=== PATIENT | female | born 1955 | race Caucasian/White ===

== ENCOUNTER 2017-03-15 12:09 | Day surgery (SDC) | payer BC ==
[2017-03-15] MEDS ORDERED: ONDANSETRON HCL IV 4 MG/2 ML VIAL IVP ONE (12:10)
[2017-03-15] MEDS ORDERED: PROPOFOL 10 MG/ML VIAL IV ONE (12:10)
[2017-03-15] MEDS ORDERED: LIDOCAINE 2% MDV (20MG/ML) 20ML VIAL IV ONE (12:10)
--- NOTE | 2017-03-17 11:30 | Operative Note ---
DATE OF SURGERY: 03/15/2017 OPERATION: COLONOSCOPY to the cecum with electrocautery snare polypectomy x3, cold snare polypectomy x1, and cold biopsy forceps polypectomy x2. INDICATION: Hemoccult-positive stools. The patient also with a history of irritable bowel syndrome. She occasionally will see blood when wiping. ANESTHESIA: Intravenous sedation was administered by the department of anesthesiology and included Diprivan titrated to effect. PROCEDURE: Following informed consent from this alert individual including a discussion of the risks and benefits of the procedure and an opportunity for the patient to ask questions, the patient was in the left lateral decubitus position. A digital rectal examination was performed. No masses were noted. No stool was obtained. Following this, the Olympus [id number] video colonoscope was inserted into the rectum without resistance. The rectal mucosa had a normal appearance with normal folds and distensibility. There was a polyp noted in the mid rectum measuring approximately 8 mm in size which was removed with electrocautery snare polypectomy and suctioned through the colonoscope into a collection trap. The colonoscope was then further advanced up through the bowel to the level of the cecum. The cecum was defined by noting the appendiceal orifice and ileocecal valve. The colon preparation was good. From the base of the cecum, the colonoscope was slowly withdrawn. There was a polyp noted in the proximal transverse colon along the fold. It measured approximately 1 cm in length and was removed with electrocautery snare polypectomy with a white eschar noted. There was no bleeding. It was suctioned through the endoscope into a collection trap. It was removed in piecemeal fashion. There was a third polyp noted in the descending colon measuring 6 mm in size which was also removed with electrocautery snare polypectomy. Again a white eschar was noted without bleeding. There were 3 polyps in the sigmoid colon, the largest measured 5 mm in size and was removed with cold snare polypectomy. Two diminutive 3 mm polyps were each removed with biopsy forceps. Retroflexion in the rectum demonstrated internal and external hemorrhoids with some inflamed-appearing mucosa. The endoscope was straightened and removed. The patient tolerated the procedure well and was returned to the recovery area in stable condition. IMPRESSION: 1. A 1 cm transverse colon polyp removed with electrocautery snare polypectomy in piecemeal fashion. 2. A 6 mm descending colon polyp removed with electrocautery snare. 3. Three sigmoid polyps measuring 3-5 mm in size removed with biopsy forceps and cold snare polypectomy. 4. An 8 mm rectal polyp removed with electrocautery snare polypectomy. 5. Inflamed internal and external hemorrhoids (small). RECOMMENDATIONS: Further recommendations will be forthcoming pending results of pathology obtained today. The patient can also use a hemorrhoidal cream topically. Followup will be with Dr. Dominguez as well. As always, thank you for allowing me to participate in the care of your patient. CC: Dr. Guillermo CLOUD
== END 2017-03-15 14:15 | disposition home or self-care (01) ==
LOC: HOP 12:09
PROVIDERS: ATTEND Internal Medicine Gastroenterology
DX: R19.5 Other fecal abnormalities (principal); Z87.19 Personal history of other diseases of the digestive system; D12.4 Benign neoplasm of descending colon; D12.3 Benign neoplasm of transverse colon; D12.5 Benign neoplasm of sigmoid colon; K62.1 Rectal polyp; I10 Essential (primary) hypertension; E78.00 Pure hypercholesterolemia, unspecified; J44.9 Chronic obstructive pulmonary disease, unspecified; C50.919 Malignant neoplasm of unspecified site of unspecified female breast; K64.8 Other hemorrhoids; K64.4 Residual hemorrhoidal skin tags
CPT/HCPCS: J2405